=== PATIENT | male | born 1970 | race Caucasian/White ===

== ENCOUNTER 2016-11-27 20:37 | Emergency (ER) | payer BC ==
[~2016-11-27] VITALS: Wt 115.2 kg
[~2016-11-27 20:37] MED LIST: HYDROCODONE BIT1 T11 PO; IBUPROFEN1 CRY PO; LEVOFLOXACIN500 MG PO; MEDROL DOSEPAK4 MG PO; NAPROSYN500 MG PO; NKHM; NORFLEX100 MG PO; PROAIR HFA0.09 MG/AC INH; ROBITUSSIN AC 110 ML PO; ULTRAM50 MG PO; ZOFRAN ODT4 MG SL; [UNRECOGNIZED DRUG - REMARK]
[2016-11-27] MEDS ORDERED: LISINOPRIL20 MG PO (20:54)
[2016-11-27] MEDS ORDERED: CYCLOBENZAPRINE5 M3 PO (20:54)
[2016-11-27] MEDS ORDERED: VITAMIN D50000 I3 PO (20:54)
[2016-11-27 21:39] LABS: BASO # 0.1 10*3/uL (0.0-0.1); BASO % 1.2 % (0.0-1.0); EOS # 0.4 10*3/uL (0.0-0.4); EOS % 4.5 % (1.0-4.0); HEMATOCRIT 42.8 % (42.0-52.0); HEMOGLOBIN 14.7 g/dl (14.0-18.0); LYMPH # 2.6 10*3/uL (1.3-4.4); LYMPH % 31.2 % (27.0-41.0); MEAN CELL VOLUME 89.9 fl (80.0-94.0); MEAN CORPUSCULAR HGB 30.9 pg (27.0-31.0); MEAN CORPUSCULAR HGB CONC 34.3 g/dl (33.0-37.0); MEAN PLATELET VOLUME 11.4 fl (9.6-12.3); MONO # 0.7 10*3/uL (0.1-1.0); MONO % 8.1 % (3.0-9.0); NEUT # 4.5 10*3/uL (2.3-7.9); NEUT % 54.8 % (47.0-73.0); PLATELET COUNT AUTOMATED 234 10*3/uL (130-400); RED BLOOD COUNT 4.76 10*6/uL (4.50-5.90); RED CELL DISTRI WIDTH 13.3 % (0-14.5); WHITE BLOOD COUNT 8.3 10*3/uL (4.8-10.8)
[2016-11-27 23:17] LABS: ALBUMIN 3.3 gm/dl (3.1-4.5); ALKALINE PHOSPHATASE 101 U/L (45-117); BILIRUBIN, TOTAL 0.3 mg/dl (0.2-1.0); BUN 11 mg/dl (7-24); CARBON DIOXIDE 27 mmol/L (21-32); CHLORIDE 107 mmol/L (98-107); EST GLOM FILT AFRICAN AMERICAN > 60 ml/min; GLUCOSE 92 mg/dL (65-99); POTASSIUM 4.1 mmol/L (3.5-5.1); SGOT/AST 14 IU/L (3-35); SGPT/ALT 21 U/L (12-78); SODIUM 143 mmol/L (136-145); TOTAL PROTEIN 6.2 gm/dL (6.4-8.2)
[2016-11-27] MEDS ORDERED: ZOFRAN4 MG PO (23:23)
[2016-11-27] MEDS ORDERED: NAPROSYN500 MG PO (23:23)
== END 2016-11-28 00:05 | disposition home or self-care (01) ==
LOC: ED 20:37
PROVIDERS: Nurse Practitioner Family
DX: K42.9 Umbilical hernia without obstruction or gangrene (principal); F17.200 Nicotine dependence, unspecified, uncomplicated; R03.0 Elevated blood-pressure reading, without diagnosis of hypertension; Z98.890 Other specified postprocedural states; Z90.49 Acquired absence of other specified parts of digestive tract; Z79.899 Other long term (current) drug therapy; Z88.0 Allergy status to penicillin

== ENCOUNTER → 2016-12-05 | Day surgery (SDC) | payer BC ==
[2016-12-04 09:07] VITALS: BP 148/100
[2016-12-05] VITALS (9 sets, daily range): BP systolic 114–148; BP diastolic 66–100
[~2016-12-05] VITALS: Ht 177.8 cm; Wt 113.4 kg
[~2016-12-05] MED LIST changes: +CELEXA20 MG PO; +CYCLOBENZAPRINE5 M3 PO; +LISINOPRIL20 MG PO; +VITAMIN D50000 I3 PO; +ZOFRAN4 MG PO
--- NOTE | ~2016-12-05 | O ---
[place], [place] OPERATIVE NOTE NAME: OUMAR CALLAWAY [facility] #: [id number] UNIT #: [id number] ROOM: DOCTOR: RUIZ GILMAN MD BIRTHDATE: [birth year] DOS: 12/05/2016 PREOPERATIVE DIAGNOSIS: Symptomatic umbilical hernia. POSTOPERATIVE DIAGNOSIS: Symptomatic umbilical hernia. PROCEDURE: Umbilical hernia repair with mesh (Ventralex small, 4.3 cm). SURGEON: Dr. Ruiz Gilman. SURVEY MANAGER: MS3. ANESTHESIA: General with endotracheal intubation. INDICATIONS: This is a 45-year-old gentleman with a history of symptomatic umbilical hernia who is here for the above-mentioned procedure. The procedure and its complications were explained to the patient in detail. Complications that were discussed included but were not limited to bleeding, infection, hematoma/seroma/abscess formation, and recurrence and mesh infection. He agreed to proceed. DESCRIPTION OF PROCEDURE: After identifying the patient, the patient was brought to the operating suite and laid in the supine position. After induction of general anesthesia, a timeout procedure was called and the parts were then painted and draped in the usual sterile fashion. An incision was made in a curvilinear fashion in the inferior part of the umbilicus. The skin and the subcutaneous tissue were incised in the line of the incision. The hernial sac was identified and from the surrounding structures. It was excised in its entirety and sent for histopathological diagnosis. The fascial defect was identified, was approximately 1 cm in diameter. A 4.3 cm Ventralex mesh was placed under the fascia and was sutured to the fascia overlying with the help of 2-0 Prolene in an interrupted fashion. The fascial defect itself was then approximated with the help of a single 0 PDS suture in a [id number] fashion. Thereafter, the subcutaneous tissue was irrigated and approximated with the help of 3-0 Vicryl in an interrupted fashion and the skin edges were approximated with the help of 4-0 Vicryl in a subcuticular running fashion after the edges were infiltrated with local anesthesia (1% plain lidocaine). Thereafter, the patient was extubated uneventfully and brought back to the recovery room and a dressing was placed. There were no complications. Dr. Ruiz Gilman, the attending surgeon, was present throughout the operating case. [place], [place] OPERATIVE NOTE NAME: OUMAR CALLAWAY UNIT #: [id number] ROOM: DOCTOR: MANUEL CARRILLO,RUIZ BIRTHDATE: [birth year] Ruiz Gilman MD CM:OPRECORD:OPERATIVE NOTE 8 6 RUIZ GILMAN MD 12/05/16936 interface
== END | disposition home or self-care (01) ==
LOC: SDC 12-04 08:45
DX: K42.9 Umbilical hernia without obstruction or gangrene (principal); I10 Essential (primary) hypertension; Z90.49 Acquired absence of other specified parts of digestive tract; F17.210 Nicotine dependence, cigarettes, uncomplicated

== ENCOUNTER 2017-07-14 10:47 | Emergency (ER) | payer BC ==
[~2017-07-14] VITALS: Wt 118.4 kg
[2017-07-14] MEDS ORDERED: ZITHROMAX250 MG PO (12:14)
[2017-07-14] MEDS ORDERED: TESSALON PERLE100 M1 PO (12:14)
[2017-07-14] MEDS ORDERED: PREDNISONE20 M1 PO (12:14)
== END 2017-07-14 12:18 | disposition home or self-care (01) ==
LOC: ED 10:47
DX: J20.9 Acute bronchitis, unspecified (principal); I10 Essential (primary) hypertension; J44.9 Chronic obstructive pulmonary disease, unspecified; F17.200 Nicotine dependence, unspecified, uncomplicated; F10.10 Alcohol abuse, uncomplicated; Z91.041 Radiographic dye allergy status; Z88.0 Allergy status to penicillin; Z79.899 Other long term (current) drug therapy

== ENCOUNTER → 2018-11-06 | Outpatient (CLI) | payer BC ==
[~2018-11-06] MED LIST changes: +AMITRIPTYLINE100 M1 PO; +LIPITOR20 MG PO; +NEURONTIN400 MG PO; +PREDNISONE10 MG PO; +PREDNISONE20 M1 PO; +Percocet 325 MG1 TAB PO; +TESSALON PERLE100 M1 PO; +VALGANCICLOVIR450 MG PO; +VITAMIN D350000 UNIT PO; +ZITHROMAX250 MG PO
== END | disposition home or self-care (01) ==
LOC: MRI 09:42
DX: S09.90XD Unspecified injury of head, subsequent encounter (principal); Z91.81 History of falling; X58.XXXD Exposure to other specified factors, subsequent encounter

== ENCOUNTER → 2019-03-04 | Outpatient (CLI) | payer BC | END | disposition home or self-care (01) | LOC: CARD 14:54 | DX: R07.2 Precordial pain (principal); R06.02 Shortness of breath; R07.9 Chest pain, unspecified ==

== ENCOUNTER 2019-06-14 11:24 | Emergency (ER) | payer BC ==
[~2019-06-14] VITALS: Ht 177.8 cm; Wt 117.9 kg
[2019-06-14] MEDS ORDERED: CLINDAMYCIN HC300 MG PO ×2 (12:25→12:45)
[2019-06-14] MEDS ORDERED: NAPROSYN500 MG PO ×2 (12:25→12:45)
[2019-06-14] MEDS ORDERED: PREDNISONE50 MG PO ×2 (12:25→12:45)
[2019-06-14] MEDS ORDERED: TESSALON PERLE100 M1 PO ×2 (12:25→12:45)
== END 2019-06-14 13:00 | disposition home or self-care (01) ==
LOC: ED 11:24
DX: K04.7 Periapical abscess without sinus (principal); J20.9 Acute bronchitis, unspecified; F17.210 Nicotine dependence, cigarettes, uncomplicated; Z91.041 Radiographic dye allergy status; Z88.0 Allergy status to penicillin; Z79.899 Other long term (current) drug therapy

== ENCOUNTER 2019-08-10 12:48 | Emergency (ER) | payer BC ==
[~2019-08-10] VITALS: Ht 175.2 cm; Wt 105.2 kg
[~2019-08-10 12:48] MED LIST changes: +CLINDAMYCIN HC300 MG PO; +PREDNISONE50 MG PO
[2019-08-10] MEDS ORDERED: MEDROL DOSEPAK4 MG PO ×2 (14:06→14:08)
[2019-08-10] MEDS ORDERED: TYLENOL325 M1 PO ×2 (14:06→14:08)
== END 2019-08-10 14:38 | disposition home or self-care (01) ==
LOC: ED 12:48
DX: M79.18 Myalgia, other site (principal); M54.2 Cervicalgia; M54.6 Pain in thoracic spine; E66.01 Morbid (severe) obesity due to excess calories; I10 Essential (primary) hypertension; K21.9 Gastro-esophageal reflux disease without esophagitis; F17.210 Nicotine dependence, cigarettes, uncomplicated; Z91.041 Radiographic dye allergy status; Z88.0 Allergy status to penicillin; Z79.899 Other long term (current) drug therapy; Z79.2 Long term (current) use of antibiotics

== ENCOUNTER 2019-08-31 00:25 | Emergency (ER) | payer BC ==
[~2019-08-31] VITALS: Wt 115.2 kg
[~2019-08-31 00:25] MED LIST changes: +TYLENOL325 M1 PO
[2019-08-31] MEDS ORDERED: TESSALON PERLE100 M1 PO (01:02)
[2019-08-31] MEDS ORDERED: PREDNISONE20 M1 PO (01:02)
[2019-08-31] MEDS ORDERED: ZITHROMAX250 MG PO ×2 (01:02→01:04)
== END 2019-08-31 01:38 | disposition home or self-care (01) ==
LOC: ED 00:25
DX: J40 Bronchitis, not specified as acute or chronic (principal); I10 Essential (primary) hypertension; K21.9 Gastro-esophageal reflux disease without esophagitis; M79.7 Fibromyalgia; F17.210 Nicotine dependence, cigarettes, uncomplicated; Z91.041 Radiographic dye allergy status; Z88.0 Allergy status to penicillin; Z79.2 Long term (current) use of antibiotics; Z79.899 Other long term (current) drug therapy; Z90.49 Acquired absence of other specified parts of digestive tract

== ENCOUNTER 2019-10-16 21:53 | Emergency (ER) | payer BC ==
[~2019-10-16] VITALS: Ht 175.2 cm; Wt 114.8 kg
[2019-10-16] MEDS ORDERED: PREDNISONE20 M1 PO (23:33)
[2019-10-16] MEDS ORDERED: Motrin,Rufen800 MG PO (23:33)
== END 2019-10-17 00:03 | disposition home or self-care (01) ==
LOC: ED 21:53
DX: M65.841 Other synovitis and tenosynovitis, right hand (principal); I10 Essential (primary) hypertension; F32.9 Major depressive disorder, single episode, unspecified; Z91.041 Radiographic dye allergy status; Z88.0 Allergy status to penicillin; Z79.899 Other long term (current) drug therapy; Z79.2 Long term (current) use of antibiotics; Z90.49 Acquired absence of other specified parts of digestive tract

== ENCOUNTER → 2019-11-06 | Outpatient (CLI) | payer BC ==
[~2019-11-06] MED LIST changes: +Motrin,Rufen800 MG PO
[2019-11-06 07:39] LABS: BASO # 0.1 10*3/uL (0.0-0.1); BASO % 0.8 % (0.0-1.0); EOS # 0.4 10*3/uL (0.0-0.4); EOS % 5.8 % (1.0-4.0); HEMATOCRIT 46.3 % (42.0-52.0); HEMOGLOBIN 15.9 g/dl (14.0-18.0); LYMPH # 1.9 10*3/uL (1.3-4.4); LYMPH % 26.6 % (27.0-41.0); MEAN CELL VOLUME 92.6 fl (80.0-94.0); MEAN CORPUSCULAR HGB 31.8 pg (27.0-31.0); MEAN CORPUSCULAR HGB CONC 34.3 g/dl (33.0-37.0); MONO # 0.5 10*3/uL (0.1-1.0); MONO % 7.3 % (3.0-9.0); NEUT # 4.3 10*3/uL (2.3-7.9); NEUT % 59.4 % (47.0-73.0); PLATELET COUNT AUTOMATED 256 10*3/uL (130-400); RED CELL DISTRI WIDTH 12.5 % (0-14.5); WHITE BLOOD COUNT 7.3 10*3/uL (4.8-10.8)
[2019-11-06 08:09] LABS: ALBUMIN 3.6 gm/dl (3.1-4.5); ALKALINE PHOSPHATASE 117 U/L (45-117); BUN 15 mg/dl (7-24); CHLORIDE 108 mmol/L (98-107); CREATININE 1.19 mg/dL (0.70-1.30); FREE T4 0.94 ng/dl (0.76-1.46); POTASSIUM 3.8 mmol/L (3.5-5.1); SGOT/AST 21 IU/L (3-35); SGPT/ALT 33 U/L (12-78); SODIUM 142 mmol/L (136-145); TOTAL PROTEIN 7.3 gm/dL (6.4-8.2)
[2019-11-06 08:15] LABS: THYROID STIM HORMONE (HS) 0.464 uIU/ml (0.358-4.75)
[2019-11-06 08:48] LABS: BILIRUBIN NEGATIVE (NEGATIVE); BLOOD NEGATIVE (NEGATIVE); CLARITY CLEAR (CLEAR); COLOR YELLOW (YELLOW); GLUCOSE NEGATIVE (NEGATIVE); KETONE NEGATIVE (NEGATIVE)
[2019-11-06 08:49] LABS: LEUKO ESTERASE NEGATIVE (NEGATIVE); NITRITE NEGATIVE (NEGATIVE); UROBILINOGEN 0.2 E.U./dl (0.2-1.0)
[2019-11-06 10:31] LABS: BACTERIA TRACE; EPITHELIAL CELLS 0-2; MUCOUS 1+
== END | disposition home or self-care (01) ==
LOC: LAB 07:06
PROVIDERS: Family Medicine
DX: F41.9 Anxiety disorder, unspecified (principal); I10 Essential (primary) hypertension; R20.0 Anesthesia of skin

== ENCOUNTER → 2020-01-18 | Outpatient (CLI) | payer BC ==
[2020-01-18 13:24] LABS: BASO # 0.1 10*3/uL (0.0-0.1); EOS # 0.4 10*3/uL (0.0-0.4); EOS % 4.5 % (1.0-4.0); HEMATOCRIT 46.2 % (42.0-52.0); LYMPH % 24.5 % (27.0-41.0); MEAN CELL VOLUME 92.2 fl (80.0-94.0); MEAN CORPUSCULAR HGB 31.1 pg (27.0-31.0); MEAN CORPUSCULAR HGB CONC 33.8 g/dl (33.0-37.0); MEAN PLATELET VOLUME 10.7 fl (9.6-12.3); MONO # 0.6 10*3/uL (0.1-1.0); MONO % 6.9 % (3.0-9.0); NEUT # 5.2 10*3/uL (2.3-7.9); NEUT % 62.9 % (47.0-73.0); PLATELET COUNT AUTOMATED 259 10*3/uL (130-400); RED BLOOD COUNT 5.01 10*6/uL (4.50-5.90); RED CELL DISTRI WIDTH 12.7 % (0-14.5); WHITE BLOOD COUNT 8.2 10*3/uL (4.8-10.8)
[2020-01-18 13:49] LABS: BUN 19 mg/dl (7-24); CHLORIDE 104 mmol/L (98-107); CREATININE 1.04 mg/dL (0.70-1.30); POTASSIUM 3.9 mmol/L (3.5-5.1); SODIUM 139 mmol/L (136-145)
== END | disposition home or self-care (01) ==
LOC: LAB 12:43
PROVIDERS: Specialist
DX: I51.7 Cardiomegaly (principal); M65.311 Trigger thumb, right thumb

== ENCOUNTER 2020-05-01 14:58 | Emergency (ER) | payer BC ==
[~2020-05-01] VITALS: Wt 118.8 kg
[2020-05-01] MEDS ORDERED: NORCO 5-325 TA1 EACH PO (16:41)
== END 2020-05-01 16:44 | disposition home or self-care (01) ==
LOC: ED 14:58
DX: M75.41 Impingement syndrome of right shoulder (principal); F17.210 Nicotine dependence, cigarettes, uncomplicated; Z88.0 Allergy status to penicillin; Z91.041 Radiographic dye allergy status; Z79.899 Other long term (current) drug therapy

== ENCOUNTER 2020-11-03 14:57 | Emergency (ER) | payer BC ==
[~2020-11-03] VITALS: Ht 172.7 cm; Wt 117.9 kg
[~2020-11-03 14:57] MED LIST changes: +NORCO 5-325 TA1 EACH PO
[2020-11-03] MEDS ORDERED: Motrin,Rufen800 MG PO (17:02)
[2020-11-03] MEDS ORDERED: PREDNISONE20 M1 PO (17:02)
== END 2020-11-03 17:10 | disposition home or self-care (01) ==
LOC: ED 14:57
DX: S63.501A Unspecified sprain of right wrist, initial encounter (principal); Z88.0 Allergy status to penicillin; Z91.041 Radiographic dye allergy status; Z79.899 Other long term (current) drug therapy; Z90.49 Acquired absence of other specified parts of digestive tract; Z98.890 Other specified postprocedural states; X58.XXXA Exposure to other specified factors, initial encounter; Y93.89 Activity, other specified; Y92.89 Other specified places as the place of occurrence of the external cause; Y99.8 Other external cause status

== ENCOUNTER 2021-03-27 16:20 | Emergency (ER) | payer OTHER ==
[~2021-03-27] VITALS: Ht 175.2 cm; Wt 112.9 kg
[2021-03-27 17:38] LABS: BASO # 0.1 10*3/uL (0.0-0.1); BASO % 0.7 % (0.0-1.0); EOS # 0.2 10*3/uL (0.0-0.4); EOS % 2.5 % (1.0-4.0); HEMATOCRIT 43.8 % (42.0-52.0); LYMPH # 2.4 10*3/uL (1.3-4.4); LYMPH % 29.2 % (27.0-41.0); MEAN CELL VOLUME 89.4 fl (80.0-94.0); MEAN CORPUSCULAR HGB 30.6 pg (27.0-31.0); MEAN CORPUSCULAR HGB CONC 34.2 g/dl (33.0-37.0); MEAN PLATELET VOLUME 11.1 fl (9.6-12.3); MONO # 0.6 10*3/uL (0.1-1.0); MONO % 6.7 % (3.0-9.0); NEUT # 5.1 10*3/uL (2.3-7.9); NEUT % 60.8 % (47.0-73.0); PLATELET COUNT AUTOMATED 234 10*3/uL (130-400); RED CELL DISTRI WIDTH 12.7 % (0-14.5); WHITE BLOOD COUNT 8.4 10*3/uL (4.8-10.8)
[2021-03-27 17:56] LABS: ALBUMIN 3.9 gm/dl (3.1-4.5); ALKALINE PHOSPHATASE 107 U/L (45-117); BUN 13 mg/dl (7-24); CHLORIDE 110 mmol/L (98-107); CREATININE 1.01 mg/dL (0.70-1.30); POTASSIUM 3.4 mmol/L (3.5-5.1); SGOT/AST 21 IU/L (3-35); SGPT/ALT 26 U/L (12-78); SODIUM 140 mmol/L (136-145); TOTAL PROTEIN 7.5 gm/dL (6.4-8.2)
[2021-03-27 17:57] LABS: TROPONIN I < 0.015 ng/ml (<0.045)
== END 2021-03-27 19:45 | disposition home or self-care (01) ==
LOC: ED 16:20
PROVIDERS: Physician Assistant
DX: B34.9 Viral infection, unspecified (principal); Z20.822 Contact with and (suspected) exposure to COVID-19; R11.10 Vomiting, unspecified; R20.2 Paresthesia of skin; R19.7 Diarrhea, unspecified; F17.210 Nicotine dependence, cigarettes, uncomplicated; Z91.041 Radiographic dye allergy status; Z88.0 Allergy status to penicillin; Z79.899 Other long term (current) drug therapy; Z90.49 Acquired absence of other specified parts of digestive tract; Z98.890 Other specified postprocedural states

== ENCOUNTER 2022-01-13 03:11 | Emergency (ER) | payer SELFPAY ==
[~2022-01-13] VITALS: Ht 177.8 cm; Wt 104.3 kg
== END 2022-01-13 06:45 | disposition home or self-care (01) ==
LOC: ED 03:11
DX: S66.912A Strain of unspecified muscle, fascia and tendon at wrist and hand level, left hand, initial encounter (principal); I10 Essential (primary) hypertension; Z88.0 Allergy status to penicillin; Z91.041 Radiographic dye allergy status; Z79.899 Other long term (current) drug therapy; Z90.49 Acquired absence of other specified parts of digestive tract; Z98.890 Other specified postprocedural states; F17.210 Nicotine dependence, cigarettes, uncomplicated; W18.39XA Other fall on same level, initial encounter; Y93.89 Activity, other specified; Y92.89 Other specified places as the place of occurrence of the external cause; Y99.8 Other external cause status

== ENCOUNTER 2022-10-08 11:33 | Emergency (ER) | payer SELFPAY ==
[~2022-10-08] VITALS: Ht 175.2 cm; Wt 104.3 kg
[2022-10-08 12:42] LABS: BASO # 0.1 10*3/uL (0.0-0.1); EOS # 0.2 10*3/uL (0.0-0.4); EOS % 2.4 % (1.0-4.0); HEMATOCRIT 43.5 % (42.0-52.0); LYMPH # 1.7 10*3/uL (1.3-4.4); LYMPH % 21.3 % (27.0-41.0); MEAN CORPUSCULAR HGB 30.5 pg (27.0-31.0); MEAN CORPUSCULAR HGB CONC 34.3 g/dl (33.0-37.0); MEAN PLATELET VOLUME 11.1 fl (9.6-12.3); MONO # 0.5 10*3/uL (0.1-1.0); MONO % 6.7 % (3.0-9.0); NEUT # 5.4 10*3/uL (2.3-7.9); NEUT % 68.3 % (47.0-73.0); PLATELET COUNT AUTOMATED 258 10*3/uL (130-400); RED BLOOD COUNT 4.89 10*6/uL (4.50-5.90); RED CELL DISTRI WIDTH 13.2 % (0-14.5); WHITE BLOOD COUNT 7.9 10*3/uL (4.8-10.8)
[2022-10-08 12:53] LABS: ACT PARTIAL THROMBO TIME 28.2 SECONDS (20.0-32.1)
[2022-10-08 12:57] LABS: ALKALINE PHOSPHATASE 104 U/L (46-116); BUN 10 mg/dl (9-23); CHLORIDE 103 mmol/L (98-107); LIPASE 34 U/L (12-53); POTASSIUM 3.4 mmol/L (3.4-5.1); SGPT/ALT 11 U/L (10-49)
[2022-10-08 13:26] LABS: BILIRUBIN Negative (Negative); BLOOD Negative (Negative); CLARITY Clear (Clear); COLOR Yellow (Yellow); GLUCOSE Negative (Negative); KETONE Trace (Negative); LEUKO ESTERASE Negative (Negative); NITRITE Negative (Negative); SPECIFIC GRAVITY >= 1.030 (1.001-1.030)
[2022-10-08 13:38] LABS: BACTERIA TRACE; EPITHELIAL CELLS 0-2; MUCOUS 1+; RBC 0-2 rbc/hpf (0-2)
== END 2022-10-08 16:11 | disposition left against medical advice (07) ==
LOC: ED 11:33
PROVIDERS: Emergency Medicine
DX: R10.31 Right lower quadrant pain (principal); R11.0 Nausea; Z88.0 Allergy status to penicillin; Z91.041 Radiographic dye allergy status; Z79.899 Other long term (current) drug therapy; Z90.49 Acquired absence of other specified parts of digestive tract; Z98.890 Other specified postprocedural states; F17.210 Nicotine dependence, cigarettes, uncomplicated

== ENCOUNTER 2022-10-09 05:27 | Inpatient (IN) | payer SELFPAY ==
[~2022-10-09] VITALS: Ht 175.2 cm; Wt 109.0 kg
[2022-10-09] VITALS (13 sets, daily range): BP systolic 136–201; BP diastolic 52–99
[2022-10-09 06:02] LABS: BASO # 0.1 10*3/uL (0.0-0.1); BASO % 0.9 % (0.0-1.0); EOS # 0.3 10*3/uL (0.0-0.4); EOS % 3.8 % (1.0-4.0); HEMATOCRIT 45.4 % (42.0-52.0); LYMPH # 1.5 10*3/uL (1.3-4.4); LYMPH % 19.7 % (27.0-41.0); MEAN CELL VOLUME 89.4 fl (80.0-94.0); MEAN CORPUSCULAR HGB 30.7 pg (27.0-31.0); MEAN CORPUSCULAR HGB CONC 34.4 g/dl (33.0-37.0); MEAN PLATELET VOLUME 10.8 fl (9.6-12.3); MONO # 0.5 10*3/uL (0.1-1.0); NEUT # 5.1 10*3/uL (2.3-7.9); NEUT % 67.3 % (47.0-73.0); PLATELET COUNT AUTOMATED 245 10*3/uL (130-400); RED BLOOD COUNT 5.08 10*6/uL (4.50-5.90); RED CELL DISTRI WIDTH 13.2 % (0-14.5); WHITE BLOOD COUNT 7.6 10*3/uL (4.8-10.8)
[2022-10-09 06:25] LABS: ALKALINE PHOSPHATASE 108 U/L (46-116); BUN 7 mg/dl (9-23); CHLORIDE 105 mmol/L (98-107); LIPASE 34 U/L (12-53); SGPT/ALT 13 U/L (10-49); TOTAL PROTEIN 6.8 gm/dL (6.0-8.0)
[2022-10-10] VITALS: BP 119/70
[2022-10-10 06:53] LABS: BASO % 0.3 % (0.0-1.0); EOS # 0.1 10*3/uL (0.0-0.4); EOS % 0.5 % (1.0-4.0); HEMATOCRIT 41.3 % (42.0-52.0); LYMPH # 1.8 10*3/uL (1.3-4.4); LYMPH % 15.1 % (27.0-41.0); MEAN CELL VOLUME 91.8 fl (80.0-94.0); MEAN CORPUSCULAR HGB CONC 32.7 g/dl (33.0-37.0); MEAN PLATELET VOLUME 11.2 fl (9.6-12.3); MONO # 0.9 10*3/uL (0.1-1.0); MONO % 7.7 % (3.0-9.0); PLATELET COUNT AUTOMATED 243 10*3/uL (130-400); RED CELL DISTRI WIDTH 13.6 % (0-14.5); WHITE BLOOD COUNT 11.9 10*3/uL (4.8-10.8)
[2022-10-10 06:59] LABS: ACT PARTIAL THROMBO TIME 26.5 SECONDS (20.0-32.1)
[2022-10-10 07:06] LABS: ALKALINE PHOSPHATASE 97 U/L (46-116); BUN 11 mg/dl (9-23); CHLORIDE 106 mmol/L (98-107); CHOLESTEROL 183 mg/dL (<200); FREE T4 1.04 ng/dl (0.89-1.76); LDL CHOLESTEROL 136 mg/dL (9-159); POTASSIUM 3.9 mmol/L (3.4-5.1); SGPT/ALT 13 U/L (10-49); THYROID STIM HORMONE (HS) 0.396 uIU/ml (0.550-4.780); TOTAL PROTEIN 6.3 gm/dL (6.0-8.0); TRIGLYCERIDES 85 mg/dl (<150)
[2022-10-10 07:28] LABS: VITAMIN D, 25-HYDROXY 13.3 ng/mL (30-100)
[2022-10-10 08:00] VITALS: BP 160/90
[2022-10-10] MEDS ORDERED: CIPRO500 MG PO (10:46)
[2022-10-10] MEDS ORDERED: LIPITOR20 MG PO (10:46)
[2022-10-10] MEDS ORDERED: LISINOPRIL40 MG PO (10:46)
[2022-10-10] MEDS ORDERED: PHARMASSURE FO0.4 MG PO (10:46)
[2022-10-10] MEDS ORDERED: Percocet 325 MG1 TAB PO (10:46)
[2022-10-10] MEDS ORDERED: VITAMIN D350 MC2 PO (10:46)
[2022-10-10] MEDS ORDERED: METRONIDAZOLE500 M1 PO (10:46)
== END 2022-10-10 14:00 | disposition home or self-care (01) | DRG 343 ==
LOC: ED 05:27 → EDHOLD 08:45 → 5E 12:20
PROVIDERS: Emergency Medicine; ADMIT Family Medicine; ATTEND Family Medicine
PROC: 0DTJ4ZZ Resection of Appendix, Percutaneous Endoscopic Approach (ICD-10-PCS; principal; 2022-10-09)
DX: K35.80 Unspecified acute appendicitis (principal); I16.0 Hypertensive urgency; I71.40 Abdominal aortic aneurysm, without rupture, unspecified; F17.210 Nicotine dependence, cigarettes, uncomplicated; I10 Essential (primary) hypertension; E55.9 Vitamin D deficiency, unspecified; G62.9 Polyneuropathy, unspecified; G47.30 Sleep apnea, unspecified; F41.9 Anxiety disorder, unspecified; F32.A Depression, unspecified; E66.01 Morbid (severe) obesity due to excess calories; Z90.49 Acquired absence of other specified parts of digestive tract; Z82.49 Family history of ischemic heart disease and other diseases of the circulatory system; Z71.6 Tobacco abuse counseling; Z88.0 Allergy status to penicillin; Z91.041 Radiographic dye allergy status; Z79.1 Long term (current) use of non-steroidal anti-inflammatories (NSAID); Z79.899 Other long term (current) drug therapy

== ENCOUNTER 2023-02-12 00:13 | Emergency (ER) | payer SELFPAY ==
[~2023-02-12] VITALS: Ht 175.2 cm; Wt 117.9 kg
[~2023-02-12 00:13] MED LIST changes: +CIPRO500 MG PO; +LISINOPRIL40 MG PO; +METRONIDAZOLE500 M1 PO; +PHARMASSURE FO0.4 MG PO; +VITAMIN D350 MC2 PO
[2023-02-12] MEDS ORDERED: LISINOPRIL20 MG PO (00:38)
[2023-02-12] MEDS ORDERED: HYDROCHLOROTHIA25 M1 PO (00:38)
[2023-02-12] MEDS ORDERED: NAPROSYN500 MG PO (02:02)
[2023-02-12] MEDS ORDERED: PREDNISONE50 MG PO (02:02)
== END 2023-02-12 02:45 | disposition home or self-care (01) ==
LOC: ED 00:13
DX: M25.511 Pain in right shoulder (principal); F17.200 Nicotine dependence, unspecified, uncomplicated; Z91.041 Radiographic dye allergy status; Z88.0 Allergy status to penicillin; Z79.899 Other long term (current) drug therapy; Z98.890 Other specified postprocedural states; Z90.49 Acquired absence of other specified parts of digestive tract

== ENCOUNTER 2023-04-10 21:09 | Emergency (ER) | payer BC ==
[~2023-04-10] VITALS: Ht 172.7 cm; Wt 123.5 kg
[~2023-04-10 21:09] MED LIST changes: +HYDROCHLOROTHIA25 M1 PO
[2023-04-10 21:36] LABS: BASO # 0.1 10*3/uL (0.0-0.1); BASO % 1.1 % (0.0-1.0); EOS # 0.3 10*3/uL (0.0-0.4); HEMATOCRIT 43.2 % (42.0-52.0); LYMPH # 2.3 10*3/uL (1.3-4.4); LYMPH % 31.4 % (27.0-41.0); MEAN CELL VOLUME 89.6 fl (80.0-94.0); MEAN CORPUSCULAR HGB 30.5 pg (27.0-31.0); MONO # 0.5 10*3/uL (0.1-1.0); MONO % 6.2 % (3.0-9.0); NEUT # 4.3 10*3/uL (2.3-7.9); PLATELET COUNT AUTOMATED 257 10*3/uL (130-400); RED BLOOD COUNT 4.82 10*6/uL (4.50-5.90); RED CELL DISTRI WIDTH 13.2 % (0-14.5); WHITE BLOOD COUNT 7.5 10*3/uL (4.8-10.8)
[2023-04-10 21:51] LABS: ACT PARTIAL THROMBO TIME 25.7 SECONDS (20.0-32.1)
[2023-04-10 21:57] LABS: ALKALINE PHOSPHATASE 127 U/L (46-116); BUN 16 mg/dl (9-23); CHLORIDE 107 mmol/L (98-107); POTASSIUM 3.2 mmol/L (3.4-5.1); SGPT/ALT 18 U/L (10-49); TOTAL PROTEIN 6.8 gm/dL (6.0-8.0)
== END 2023-04-11 00:14 | disposition home or self-care (01) ==
LOC: ED 21:09
PROVIDERS: Internal Medicine
DX: R07.89 Other chest pain (principal); E87.6 Hypokalemia; F43.9 Reaction to severe stress, unspecified; R06.02 Shortness of breath; R61 Generalized hyperhidrosis; E66.9 Obesity, unspecified; F17.200 Nicotine dependence, unspecified, uncomplicated; Z91.041 Radiographic dye allergy status; Z88.0 Allergy status to penicillin; Z79.899 Other long term (current) drug therapy; Z90.49 Acquired absence of other specified parts of digestive tract; Z98.890 Other specified postprocedural states; Z68.30 Body mass index [BMI] 30.0-30.9, adult

== ENCOUNTER 2023-05-14 09:44 | Emergency (ER) | payer BC ==
[~2023-05-14] VITALS: Ht 175.2 cm; Wt 117.9 kg
[~2023-05-14 09:44] MED LIST changes: +ASPIRIN ADULT L81 M1 PO; +BUSPAR15 MG PO; +CYCLOBENZAPRINE10 MG PO; +IMDUR SA30 MG PO; +LIPITOR80 MG PO; +LOPRESSOR25 MG PO; +Zestril,Prinivi40 MG PO
[2023-05-14] MEDS ORDERED: SERTRALINE HYDR25 MG PO (10:10)
[2023-05-14 11:04] LABS: BASO # 0.1 10*3/uL (0.0-0.1); BASO % 0.5 % (0.0-1.0); EOS # 0.2 10*3/uL (0.0-0.4); EOS % 1.9 % (1.0-4.0); HEMATOCRIT 43.8 % (42.0-52.0); LYMPH # 1.8 10*3/uL (1.3-4.4); LYMPH % 18.8 % (27.0-41.0); MEAN CELL VOLUME 88.5 fl (80.0-94.0); MEAN CORPUSCULAR HGB 31.1 pg (27.0-31.0); MEAN CORPUSCULAR HGB CONC 35.2 g/dl (33.0-37.0); MEAN PLATELET VOLUME 10.7 fl (9.6-12.3); MONO # 0.5 10*3/uL (0.1-1.0); MONO % 5.5 % (3.0-9.0); NEUT # 6.9 10*3/uL (2.3-7.9); PLATELET COUNT AUTOMATED 267 10*3/uL (130-400); RED BLOOD COUNT 4.95 10*6/uL (4.50-5.90); RED CELL DISTRI WIDTH 13.2 % (0-14.5); WHITE BLOOD COUNT 9.4 10*3/uL (4.8-10.8)
[2023-05-14 11:27] LABS: ALKALINE PHOSPHATASE 119 U/L (46-116); BUN 11 mg/dl (9-23); CHLORIDE 105 mmol/L (98-107); LIPASE 55 U/L (12-53); POTASSIUM 3.9 mmol/L (3.4-5.1); SGPT/ALT 24 U/L (10-49); TOTAL PROTEIN 7.2 gm/dL (6.0-8.0)
[2023-05-14 11:28] LABS: ACT PARTIAL THROMBO TIME 29.4 SECONDS (20.0-32.1)
== END 2023-05-14 13:54 | disposition home or self-care (01) ==
LOC: ED 09:44
PROVIDERS: Emergency Medicine
DX: U07.1 COVID-19 (principal); I25.2 Old myocardial infarction; F17.200 Nicotine dependence, unspecified, uncomplicated; Z79.899 Other long term (current) drug therapy; Z79.82 Long term (current) use of aspirin; Z98.890 Other specified postprocedural states; Z91.041 Radiographic dye allergy status; Z90.49 Acquired absence of other specified parts of digestive tract; Z88.0 Allergy status to penicillin; Z91.013 Allergy to seafood

== ENCOUNTER 2023-08-04 12:02 | Emergency (ER) | payer BC ==
[~2023-08-04] VITALS: Ht 175.2 cm; Wt 120.7 kg
[~2023-08-04 12:02] MED LIST changes: +SERTRALINE HYDR25 MG PO
[2023-08-04 13:09] LABS: BASO # 0.1 10*3/uL (0.0-0.1); BASO % 0.8 % (0.0-1.0); EOS # 0.9 10*3/uL (0.0-0.4); EOS % 9.9 % (1.0-4.0); HEMATOCRIT 41.5 % (42.0-52.0); LYMPH # 1.9 10*3/uL (1.3-4.4); LYMPH % 21.3 % (27.0-41.0); MEAN CELL VOLUME 92.6 fl (80.0-94.0); MEAN CORPUSCULAR HGB 29.9 pg (27.0-31.0); MEAN CORPUSCULAR HGB CONC 32.3 g/dl (33.0-37.0); MEAN PLATELET VOLUME 10.5 fl (9.6-12.3); MONO # 0.7 10*3/uL (0.1-1.0); MONO % 7.8 % (3.0-9.0); NEUT # 5.4 10*3/uL (2.3-7.9); PLATELET COUNT AUTOMATED 238 10*3/uL (130-400); RED BLOOD COUNT 4.48 10*6/uL (4.50-5.90); RED CELL DISTRI WIDTH 14.3 % (0-14.5)
[2023-08-04] MEDS ORDERED: VITAMIN C500 M8 PO (13:21)
[2023-08-04] MEDS ORDERED: PEPCID40 MG PO (13:23)
[2023-08-04 13:31] LABS: ALKALINE PHOSPHATASE 138 U/L (46-116); BUN 13 mg/dl (9-23); CHLORIDE 108 mmol/L (98-107); LIPASE 45 U/L (12-53); POTASSIUM 4.1 mmol/L (3.4-5.1); SGPT/ALT 14 U/L (5-49); TOTAL PROTEIN 7.1 gm/dL (6.0-8.0)
[2023-08-04] MEDS ORDERED: HYDROXYZINE HCL25 MG PO (15:26)
== END 2023-08-04 15:45 | disposition home or self-care (01) ==
LOC: ED 12:02
PROVIDERS: Physician Assistant Medical
DX: F41.9 Anxiety disorder, unspecified (principal); G89.18 Other acute postprocedural pain; I10 Essential (primary) hypertension; K21.9 Gastro-esophageal reflux disease without esophagitis; Z88.0 Allergy status to penicillin; Z91.013 Allergy to seafood; Z91.041 Radiographic dye allergy status; Z90.49 Acquired absence of other specified parts of digestive tract; Z98.890 Other specified postprocedural states; F17.290 Nicotine dependence, other tobacco product, uncomplicated; F12.90 Cannabis use, unspecified, uncomplicated; Z90.89 Acquired absence of other organs

== ENCOUNTER 2023-09-22 11:46 | Emergency (ER) | payer SELFPAY ==
[~2023-09-22 11:46] MED LIST changes: +HYDROXYZINE HCL25 MG PO; +PEPCID40 MG PO; +VITAMIN C500 M8 PO
[2023-09-22 12:26] LABS: BASO # 0.1 10*3/uL (0.0-0.1); BASO % 0.7 % (0.0-1.0); EOS # 0.6 10*3/uL (0.0-0.4); EOS % 8.5 % (1.0-4.0); HEMATOCRIT 42.3 % (42.0-52.0); LYMPH # 1.6 10*3/uL (1.3-4.4); LYMPH % 21.5 % (27.0-41.0); MEAN CELL VOLUME 90.4 fl (80.0-94.0); MEAN CORPUSCULAR HGB 28.8 pg (27.0-31.0); MEAN CORPUSCULAR HGB CONC 31.9 g/dl (33.0-37.0); MEAN PLATELET VOLUME 10.5 fl (9.6-12.3); MONO # 0.5 10*3/uL (0.1-1.0); MONO % 6.5 % (3.0-9.0); NEUT # 4.7 10*3/uL (2.3-7.9); NEUT % 62.5 % (47.0-73.0); PLATELET COUNT AUTOMATED 290 10*3/uL (130-400); RED BLOOD COUNT 4.68 10*6/uL (4.50-5.90); RED CELL DISTRI WIDTH 14.2 % (0-14.5); WHITE BLOOD COUNT 7.4 10*3/uL (4.8-10.8)
[2023-09-22 12:38] LABS: ACT PARTIAL THROMBO TIME 27.2 SECONDS (20.0-32.1)
[2023-09-22 12:52] LABS: ALKALINE PHOSPHATASE 104 U/L (46-116); BUN 13 mg/dl (9-23); CHLORIDE 109 mmol/L (98-107); LIPASE 37 U/L (12-53); POTASSIUM 3.5 mmol/L (3.4-5.1); SGPT/ALT 24 U/L (5-49); TOTAL PROTEIN 6.8 gm/dL (6.0-8.0)
[2023-09-22] MEDS ORDERED: ZITHROMAX250 MG PO (14:47)
[2023-09-22] MEDS ORDERED: PREDNISONE50 MG PO (14:47)
== END 2023-09-22 15:00 | disposition home or self-care (01) ==
LOC: ED 11:46
PROVIDERS: Emergency Medicine
DX: J44.1 Chronic obstructive pulmonary disease with (acute) exacerbation (principal); R07.89 Other chest pain; I10 Essential (primary) hypertension; K21.9 Gastro-esophageal reflux disease without esophagitis; I25.2 Old myocardial infarction; Z90.89 Acquired absence of other organs; M79.7 Fibromyalgia; Z91.041 Radiographic dye allergy status; Z88.0 Allergy status to penicillin; Z91.013 Allergy to seafood; Z90.49 Acquired absence of other specified parts of digestive tract; Z98.890 Other specified postprocedural states; F17.200 Nicotine dependence, unspecified, uncomplicated; F12.90 Cannabis use, unspecified, uncomplicated

== ENCOUNTER 2024-02-21 14:03 | Emergency (ER) | payer MEDICAID ==
[~2024-02-21] VITALS: Ht 177.8 cm; Wt 136.1 kg
[2024-02-21 14:21] LABS: BASO # 0.1 10*3/uL (0.0-0.1); BASO % 0.9 % (0.0-1.0); EOS # 0.3 10*3/uL (0.0-0.4); EOS % 3.5 % (1.0-4.0); HEMATOCRIT 41.9 % (42.0-52.0); LYMPH # 1.8 10*3/uL (1.3-4.4); LYMPH % 20.9 % (27.0-41.0); MEAN CELL VOLUME 94.8 fl (80.0-94.0); MEAN CORPUSCULAR HGB 30.3 pg (27.0-31.0); MEAN PLATELET VOLUME 10.8 fl (9.6-12.3); MONO # 0.6 10*3/uL (0.1-1.0); MONO % 7.6 % (3.0-9.0); NEUT # 5.7 10*3/uL (2.3-7.9); NEUT % 66.9 % (47.0-73.0); PLATELET COUNT AUTOMATED 238 10*3/uL (130-400); RED BLOOD COUNT 4.42 10*6/uL (4.50-5.90); RED CELL DISTRI WIDTH 14.1 % (0-14.5); WHITE BLOOD COUNT 8.5 10*3/uL (4.8-10.8)
[2024-02-21] MEDS ORDERED: ZOLOFT25 MG PO (14:27)
[2024-02-21] MEDS ORDERED: LISINOPRIL-HCT1 EACH PO (14:28)
[2024-02-21 14:34] LABS: ACT PARTIAL THROMBO TIME 26.6 SECONDS (20.0-32.1)
[2024-02-21 14:42] LABS: ALKALINE PHOSPHATASE 127 U/L (46-116); BUN 14 mg/dl (9-23); CHLORIDE 109 mmol/L (98-107); POTASSIUM 3.9 mmol/L (3.4-5.1); SGPT/ALT 16 U/L (5-49)
[2024-02-21] MEDS ORDERED: LORazepam 1 MG TAB PO ONE (14:45)
[2024-02-21] MEDS ORDERED: methylPREDNISolone sod succ 125 MG VIAL IV ONE ×2 (14:50→15:15)
[2024-02-21] MEDS ORDERED: diphenhydrAMINE hydrochloride 50 MG/ML VIAL IV ONE ×2 (14:50→15:15)
[2024-02-21] MEDS ORDERED: IOHEXOL 350 MG/ML 100 ML VIAL IV ONE (14:55)
[2024-02-21] MEDS ORDERED: SODIUM CHLORIDE 0.9% 100 ML BAG IV ONE (14:55)
[2024-02-21] MEDS ORDERED: ZITHROMAX250 MG PO (20:44)
[2024-02-21] MEDS ORDERED: PREDNISONE50 MG PO (20:44)
[2024-02-21] MEDS ORDERED: predniSONE 20 MG TAB PO ONE (20:45)
[2024-02-21] MEDS ORDERED: AZITHROMYCIN 250 MG TAB PO ONE (20:45)
== END 2024-02-21 22:29 | disposition left against medical advice (07) ==
LOC: ED 14:03
PROVIDERS: Emergency Medicine
DX: R07.89 Other chest pain (principal); F17.200 Nicotine dependence, unspecified, uncomplicated; Z91.041 Radiographic dye allergy status; Z88.0 Allergy status to penicillin; Z91.013 Allergy to seafood; Z79.82 Long term (current) use of aspirin; Z79.899 Other long term (current) drug therapy; Z98.890 Other specified postprocedural states; Z90.49 Acquired absence of other specified parts of digestive tract; Z53.29 Procedure and treatment not carried out because of patient's decision for other reasons

== ENCOUNTER 2024-05-23 13:45 | Emergency (ER) | payer BC ==
[~2024-05-23] VITALS: Ht 177.8 cm; Wt 123.4 kg
[~2024-05-23 13:45] MED LIST changes: +AMLODIPINE BESYL5 MG PO; +HYDROCODONE-AC1 EAC1 PO; +KETOROLAC10 MG PO; +LEVOFLOXACIN750 M2 PO; +LISINOPRIL-HCT1 EACH PO; +TORSEMIDE20 MG PO; +ZOLOFT25 MG PO
[2024-05-23] MEDS ORDERED: MORPHINE Sulfate 2 MG/ML SYR IV PRN (14:15)
[2024-05-23] MEDS ORDERED: Ondansetron Hydrochloride 4 MG/2 ML VIAL IV ONE (14:15)
[2024-05-23] MEDS ORDERED: Ketorolac Tromethamine 15 MG/ML VIAL IV ONE (14:40)
[2024-05-23 14:42] LABS: BASO # 0.1 10*3/uL (0.0-0.1); BASO % 0.5 % (0.0-1.0); EOS # 0.4 10*3/uL (0.0-0.4); EOS % 3.4 % (1.0-4.0); HEMATOCRIT 37.3 % (42.0-52.0); LYMPH # 1.7 10*3/uL (1.3-4.4); LYMPH % 16.1 % (27.0-41.0); MEAN CORPUSCULAR HGB 29.6 pg (27.0-31.0); MEAN CORPUSCULAR HGB CONC 33.2 g/dl (33.0-37.0); MEAN PLATELET VOLUME 10.6 fl (9.6-12.3); MONO # 0.8 10*3/uL (0.1-1.0); MONO % 8.2 % (3.0-9.0); NEUT # 7.3 10*3/uL (2.3-7.9); NEUT % 71.4 % (47.0-73.0); PLATELET COUNT AUTOMATED 244 10*3/uL (130-400); RED BLOOD COUNT 4.19 10*6/uL (4.50-5.90); RED CELL DISTRI WIDTH 14.3 % (0-14.5); WHITE BLOOD COUNT 10.2 10*3/uL (4.8-10.8)
[2024-05-23 14:59] LABS: BUN 16 mg/dl (9-23); CHLORIDE 103 mmol/L (98-107)
[2024-05-23] MEDS ORDERED: POTASSIUM CHLORIDE 20 MEQ TAB PO ONE (15:10)
[2024-05-23] MEDS ORDERED: LASIX20 MG PO (15:42)
[2024-05-23] MEDS ORDERED: METHOCARBAMOL1000 MG PO (15:42)
[2024-05-23] MEDS ORDERED: METHOCARBAMOL 500 MG TAB PO ONE (15:45)
== END 2024-05-23 15:50 | disposition home or self-care (01) ==
LOC: ED 13:45
PROVIDERS: Emergency Medicine
DX: R07.89 Other chest pain (principal); M79.89 Other specified soft tissue disorders; E87.6 Hypokalemia; I25.10 Atherosclerotic heart disease of native coronary artery without angina pectoris; I10 Essential (primary) hypertension; K21.9 Gastro-esophageal reflux disease without esophagitis; I25.2 Old myocardial infarction; M79.7 Fibromyalgia; F17.200 Nicotine dependence, unspecified, uncomplicated; F12.90 Cannabis use, unspecified, uncomplicated; Z91.041 Radiographic dye allergy status; Z91.013 Allergy to seafood; Z88.0 Allergy status to penicillin; Z90.49 Acquired absence of other specified parts of digestive tract; Z98.890 Other specified postprocedural states; Z90.89 Acquired absence of other organs

== ENCOUNTER 2024-07-10 23:36 | Emergency (ER) | payer BC ==
[~2024-07-10] VITALS: Ht 175.2 cm; Wt 126.6 kg
[~2024-07-10 23:36] MED LIST changes: +LASIX20 MG PO; +METHOCARBAMOL1000 MG PO
[2024-07-11] MEDS ORDERED: Acetaminophen/Hydrocodone 5 MG/325 MG TABLET PO ONE (00:40)
[2024-07-11 01:13] LABS: BUN 17 mg/dl (9-23); CHLORIDE 109 mmol/L (98-107); POTASSIUM 3.8 mmol/L (3.4-5.1)
[2024-07-11] MEDS ORDERED: HYDROCODONE-AC1 EAC1 PO ×2 (01:27→15:10)
[2024-07-11] MEDS ORDERED: PREDNISONE50 MG PO ×2 (01:27→15:10)
[2024-07-11] MEDS ORDERED: predniSONE 20 MG TAB PO ONE (01:30)
[2024-07-11] MEDS ORDERED: Ketorolac Tromethamine 30 MG/ML VIAL IM ONE (02:00)
== END 2024-07-11 02:00 | disposition home or self-care (01) ==
LOC: ED 23:36
PROVIDERS: Emergency Medicine
DX: M25.511 Pain in right shoulder (principal); I10 Essential (primary) hypertension; E78.5 Hyperlipidemia, unspecified; F41.9 Anxiety disorder, unspecified; E66.01 Morbid (severe) obesity due to excess calories; F17.210 Nicotine dependence, cigarettes, uncomplicated; Z91.041 Radiographic dye allergy status; Z88.0 Allergy status to penicillin; Z91.013 Allergy to seafood; Z79.82 Long term (current) use of aspirin; Z79.899 Other long term (current) drug therapy; Z98.890 Other specified postprocedural states; Z90.49 Acquired absence of other specified parts of digestive tract

== ENCOUNTER 2025-01-08 22:22 | Observation (INO) | payer BC ==
[~2025-01-08] VITALS: Ht 175.2 cm; Wt 134.7 kg
[~2025-01-08 22:22] MED LIST changes: +ELIQUIS5 M1 PO; +XARE20MG PO
[2025-01-08 22:52] VITALS: BP 110/58
[2025-01-08] MEDS ORDERED: dilTIAZem Hydrochloride 25 MG/5 ML VIAL IV ONE (23:05)
[2025-01-08 23:25] LABS: BASO # 0.1 10*3/uL (0.0-0.1); BASO % 0.3 % (0.0-1.0); EOS # 0.2 10*3/uL (0.0-0.4); EOS % 0.9 % (1.0-4.0); HEMATOCRIT 45.5 % (42.0-52.0); MEAN CELL VOLUME 89.7 fl (80.0-94.0); MEAN CORPUSCULAR HGB 29.8 pg (27.0-31.0); MEAN CORPUSCULAR HGB CONC 33.2 g/dl (33.0-37.0); MEAN PLATELET VOLUME 10.1 fl (9.6-12.3); MONO % 5.4 % (3.0-9.0); NEUT # 13.1 10*3/uL (2.3-7.9); NEUT % 74.8 % (47.0-73.0); PLATELET COUNT AUTOMATED 273 10*3/uL (130-400); RED BLOOD COUNT 5.07 10*6/uL (4.50-5.90); RED CELL DISTRI WIDTH 14.8 % (0-14.5); WHITE BLOOD COUNT 17.5 10*3/uL (4.8-10.8)
[2025-01-08 23:47] LABS: ALKALINE PHOSPHATASE 114 U/L (46-116); BUN 24 mg/dl (9-23); CHLORIDE 104 mmol/L (98-107); POTASSIUM 3.6 mmol/L (3.4-5.1); SGPT/ALT 22 U/L (5-49); TOTAL PROTEIN 6.1 gm/dL (6.0-8.0)
[2025-01-08] MEDS ORDERED: LORazepam 1 MG TAB PO ONE (23:50)
[2025-01-08] MEDS ORDERED: Lopressor25 MG PO (23:58)
[2025-01-09] VITALS (7 sets, daily range): BP systolic 84–110; BP diastolic 52–74
[2025-01-09] MEDS ORDERED: PREDNISONE50 MG PO
[2025-01-09] MEDS ORDERED: XANAX0.25 MG PO (00:05)
[2025-01-09] MEDS ORDERED: SODIUM CHLORIDE 0.9% 500 ML IV ONE (02:30)
[2025-01-09] MEDS ORDERED: Magnesium Hydroxide 30 ML UDC PO PRN (03:30)
[2025-01-09] MEDS ORDERED: ACETAMINOPHEN 325 MG TAB PO PRN (03:30)
[2025-01-09] MEDS ORDERED: BISACODYL 5 MG TAB PO PRN (03:30)
[2025-01-09] MEDS ORDERED: Acetaminophen/Hydrocodone 5 MG/325 MG TABLET PO PRN (03:30)
[2025-01-09] MEDS ORDERED: Ondansetron Hydrochloride 4 MG/2 ML VIAL IV PRN (03:30)
[2025-01-09] MEDS ORDERED: TEMAZEPAM 15 MG CAP PO PRN (03:30)
[2025-01-09] MEDS ORDERED: MORPHINE Sulfate 2 MG/ML SYR IV PRN (03:30)
[2025-01-09] MEDS ORDERED: ACETAMINOPHEN 650 MG SUPP R PRN (03:30)
[2025-01-09] MEDS ORDERED: BISACODYL 10 MG SUPP R PRN (03:30)
[2025-01-09] MEDS ORDERED: Lopressor25 MG PO (09:29)
[2025-01-09] MEDS ORDERED: METOPROLOL SUCCINATE XR 25 MG TAB PO SCH (10:00)
[2025-01-09] MEDS ORDERED: RIVAROXABAN 20 MG TAB PO SCH (18:00)
== END 2025-01-09 12:37 | disposition home or self-care (01) ==
LOC: ED 22:22 → EDHOLD 01-09 02:38
PROVIDERS: Emergency Medicine; ADMIT Internal Medicine; ATTEND Internal Medicine
DX: I48.0 Paroxysmal atrial fibrillation (principal); R65.10 Systemic inflammatory response syndrome (SIRS) of non-infectious origin without acute organ dysfunction; D72.828 Other elevated white blood cell count; R73.9 Hyperglycemia, unspecified; E44.1 Mild protein-calorie malnutrition; I10 Essential (primary) hypertension; G47.30 Sleep apnea, unspecified; E78.2 Mixed hyperlipidemia; I25.10 Atherosclerotic heart disease of native coronary artery without angina pectoris; Z79.01 Long term (current) use of anticoagulants; Z79.82 Long term (current) use of aspirin; Z79.899 Other long term (current) drug therapy

== ENCOUNTER → 2025-02-09 | Outpatient (CLI) | payer BC ==
[~2025-02-09] MED LIST changes: +Lopressor25 MG PO; +XANAX0.25 MG PO
== END | disposition home or self-care (01) ==
LOC: NM 00:53
PROVIDERS: ATTEND Family Medicine
DX: E05.90 Thyrotoxicosis, unspecified without thyrotoxic crisis or storm (principal)

== ENCOUNTER 2025-07-24 09:40 | Emergency (ER) | payer BC ==
[~2025-07-24] VITALS: Ht 175.2 cm; Wt 117.9 kg
[2025-07-24] MEDS ORDERED: DILTIAZEM HCL IN NACL,ISO-OSM 100 ML IV ONE (10:00)
[2025-07-24 10:22] LABS: BASO # 0.1 10*3/uL (0.0-0.1); BASO % 1.1 % (0.0-1.0); EOS # 0.3 10*3/uL (0.0-0.4); EOS % 3.3 % (1.0-4.0); MEAN CELL VOLUME 88.4 fl (80.0-94.0); MEAN CORPUSCULAR HGB 29.9 pg (27.0-31.0); MEAN PLATELET VOLUME 11.2 fl (9.6-12.3); MONO # 0.7 10*3/uL (0.1-1.0); MONO % 8.1 % (3.0-9.0); NEUT # 5.3 10*3/uL (2.3-7.9); NEUT % 65.6 % (47.0-73.0); NUCLEATED RED BLOOD CELL 0.0 % (0.0-0.0); NUCLEATED RED BLOOD CELL 0.0 10*3/uL (0.0-0.0); PLATELET COUNT AUTOMATED 246 10*3/uL (130-400); RED CELL DISTRI WIDTH 13.4 % (0-14.5)
[2025-07-24 10:33] LABS: ACT PARTIAL THROMBO TIME 25.1 SECONDS (20.0-32.1)
[2025-07-24 10:48] LABS: BUN 11 mg/dl (9-23); CPK 155 U/L (34-171)
== END 2025-07-24 12:53 | disposition left against medical advice (07) ==
LOC: ED 09:40
PROVIDERS: Emergency Medicine
DX: I48.91 Unspecified atrial fibrillation (principal); R07.89 Other chest pain; I25.10 Atherosclerotic heart disease of native coronary artery without angina pectoris; Z79.899 Other long term (current) drug therapy; Z88.0 Allergy status to penicillin; Z91.041 Radiographic dye allergy status; Z91.013 Allergy to seafood; Z90.49 Acquired absence of other specified parts of digestive tract; Z98.890 Other specified postprocedural states